=== PATIENT | female | born 1985 | race Caucasian/White ===

== ENCOUNTER 2018-02-22 07:32 | Emergency (ER) | payer MEDICAID ==
[~2018-02-22] VITALS: Ht 165.1 cm; Wt 86.0 kg
[2018-02-22] MEDS ORDERED: IBUPROFEN 400MG TABLET PO ONE (08:30)
[2018-02-22 09:57] VITALS: BP 110/75
== END 2018-02-22 10:30 | disposition home or self-care (01) ==
LOC: ER 07:32
DX: R07.89 Other chest pain (principal); K21.9 Gastro-esophageal reflux disease without esophagitis; R94.31 Abnormal electrocardiogram [ECG] [EKG]
CPT/HCPCS: 36415; 84484; 93005; 99284